=== PATIENT | male | born 1955 | race Two or more races ===

== ENCOUNTER 2021-10-02 03:28 | Emergency (ER) | payer OTHER, MEDICAID ==
[~2021-10-02] VITALS: Ht 170.2 cm; Wt 66.7 kg
[2021-10-02 03:30] VITALS: BP 144/79
== END 2021-10-02 07:14 | disposition left against medical advice (07) ==
LOC: ER 03:28
DX: F31.9 Bipolar disorder, unspecified (principal); F20.9 Schizophrenia, unspecified; Z59.00 Homelessness unspecified

== ENCOUNTER → 2021-10-02 | Emergency (ER) | payer OTHER, MEDICAID | END | disposition left against medical advice (07) | LOC: ER 00:29 | DX: Z04.3 Encounter for examination and observation following other accident (principal); Z53.21 Procedure and treatment not carried out due to patient leaving prior to being seen by health care provider; W19.XXXA Unspecified fall, initial encounter; Y93.89 Activity, other specified; Y92.89 Other specified places as the place of occurrence of the external cause; Y99.8 Other external cause status ==